=== PATIENT | female | born 1995 | race African-American/Black ===

== ENCOUNTER 2021-07-08 20:58 | Day surgery (SDC) | payer OTHER ==
[2021-07-08 21:09] VITALS: BMI 32.4
[2021-07-08] MEDS ORDERED: hydrALAZINE 20 MG/ML VIAL SLOW IVP PRN (21:48)
[2021-07-08 22:30] LABS: #Eosinphils 0.3 10x3/uL (0.0-0.5); #Monocytes 1.5 10x3/uL (0.0-1.1); #Neutrophils 10.4 10x3/uL (1.5-8.4); %Basophils 0.2 % (0.0-2.0); %Eosinophils 1.9 % (0.0-6.0); %Lymphocytes 14.1 % (18.0-47.0); %Monocytes 10.5 % (0.0-10.0); %Neutrophils 72.7 % (40.0-75.0); Mean Corpuscular HGB CONC 31.8 g/dL (32.0-36.0); Mean Corpuscular Hemoglobin 29.3 pg (27.0-33.0); Mean Platelet Volume 11.2 fl (7.4-10.4); Platelet Count 232 10x3/uL (150-450); RBC Distribution Width 13.6 % (11.5-14.5); Red Blood Cell (RBC) Count 3.76 10x6/uL (3.90-5.03); White Blood Cell (WBC) Count 14.3 10x3/uL (3.5-10.5)
[2021-07-08 22:44] LABS: ALT (SGPT) 9 U/L (8-55); AST (SGOT) 12 U/L (5-34); Albumin 3.2 g/dL (3.5-5.0); Alkaline Phosphatase 85 U/L (40-110); Anion Gap 12 mmol/L (10-20); BUN (Urea Nitrogen) 5 mg/dL (7.0-18.7); Bilirubin, Total 0.3 mg/dL (0.2-1.2); Calc. Creatinine Clearance 181 mL/min (70-130); Calcium 9.1 mg/dL (7.8-10.44); Carbon Dioxide 23 mmol/L (22-29); Chloride 107 mmol/L (98-107); Globulin 3.2 g/dL (2.4-3.5); Glucose 100 mg/dL (70-105); Potassium 3.9 mmol/L (3.5-5.1); Protein, Total 6.4 g/dL (6.0-8.3); Sodium 138 mmol/L (136-145)
== END 2021-07-08 23:34 | disposition home or self-care (01) ==
LOC: CSHLD/OP 20:58
PROVIDERS: ATTEND Obstetrics & Gynecology
DX: O99.891 Other specified diseases and conditions complicating pregnancy (principal); R10.9 Unspecified abdominal pain; Z3A.33 33 weeks gestation of pregnancy
CPT/HCPCS: 36415; 80053; 85025; 99283

== ENCOUNTER 2021-07-15 18:38 | Day surgery (SDC) | payer OTHER ==
[2021-07-15 19:16] VITALS: BMI 32.4
[2021-07-15] MEDS ORDERED: hydrALAZINE 20 MG/ML VIAL SLOW IVP PRN (20:38)
== END 2021-07-15 20:49 | disposition home or self-care (01) ==
LOC: CSHLD/OP 18:38
PROVIDERS: ATTEND Obstetrics & Gynecology
DX: Z04.3 Encounter for examination and observation following other accident (principal); Z3A.34 34 weeks gestation of pregnancy; W10.1XXA Fall (on)(from) sidewalk curb, initial encounter
CPT/HCPCS: 99282

== ENCOUNTER 2021-07-25 05:19 | Day surgery (SDC) | payer OTHER ==
[2021-07-25 05:57] VITALS: BMI 32.9
[2021-07-25] MEDS ORDERED: hydrALAZINE 20 MG/ML VIAL SLOW IVP PRN (06:08)
[2021-07-25] MEDS ORDERED: Ondansetron PF 4 MG/2 ML Vial IVP SCH (08:00)
[2021-07-25] MEDS: Lactated Ringer's 1,000 ML IV SCH ×2 (08:14→08:54)
[2021-07-25 08:38] LABS: Hemoglobin 12.1 g/dL (12.0-15.5); Mean Corpuscular HGB CONC 32.7 g/dL (32.0-36.0); Mean Corpuscular Hemoglobin 29.5 pg (27.0-33.0); Mean Corpuscular Volume 90.2 fl (81.6-98.3); Mean Platelet Volume 11.4 fl (7.4-10.4); Platelet Count 240 10x3/uL (150-450); RBC Distribution Width 13.8 % (11.5-14.5); White Blood Cell (WBC) Count 17.4 10x3/uL (3.5-10.5)
[2021-07-25 09:06] LABS: Syphilis Antibody Nonreactive (Nonreactive); Syphilis Antibody Index 0.03 S/CO (<1.00 Non-Reactive)
[2021-07-25 09:08] LABS: HIV (1/2) Antibody/Antigen Non-Reactive (NonReactive); HIV 1/2 INDEX 0.16 S/CO (<1.00); Hep B Surf Ag Non-Reactive S/CO (NonReactive)
[2021-07-25 10:00] LABS: Bilirubin Neg (Negative); Blood, Urine Negative (Negative); Clarity Clear (Clear); Glucose, Urine (Dipstick) Normal (Negative); Ketone, Urine 50 mg/dL (Negative); Leukocyte Negative (Negative); Nitrite Negative (Negative); Protein, Urine (Dipstick) 30 mg/dl (Neg-Trace); Specific Gravity, Urine 1.015 (1.002-1.036); Urobilinogen Normal mg/dL (Less than 2)
[2021-07-25 10:02] LABS: Urine Culture Reflex No No
[2021-07-25 10:10] LABS: Amphetamine Not Detected (NotDetected); Barbiturates Screen Not Detected (NotDetected); Benzodiazepine Screen Not Detected (NotDetected); Cocaine Metabolite Screen Not Detected (NotDetected); Methadone Not Detected (NotDetected); Methamphetamine Not Detected (NotDetected); Opiate Screen Not Detected (NotDetected); Oxycodone Screen Not Detected (NotDetected); Phencyclidine (PCP) Not Detected (NotDetected); THC/Cannabinoid Screen Not Detected (NotDetected); Tricyclic Screen Not Detected (NotDetected)
[2021-07-25 10:19] LABS: Bacteria/HPF None Seen HPF (None Seen); RBC/HPF 0-3 HPF (0-3); Squamous Epithelial 0-3 HPF (0-3); WBC/HPF 0-3 HPF (0-3)
[2021-07-27 04:58] LABS: Chlamydia by PCR Not Detected (NotDetected); GC by PCR Not Detected (NotDetected)
== END 2021-07-25 14:50 | disposition home or self-care (01) ==
LOC: CSHLD/OP 05:19
PROVIDERS: ATTEND Obstetrics & Gynecology
DX: O47.03 False labor before 37 completed weeks of gestation, third trimester (principal); O21.2 Late vomiting of pregnancy; O99.891 Other specified diseases and conditions complicating pregnancy; R19.7 Diarrhea, unspecified; Z3A.36 36 weeks gestation of pregnancy
CPT/HCPCS: 51701; 76805; 80306; 81001; 85027; 86762; 86780; 86850; 86900; 86901; 87081; 87340; 87389; 87480; 87491; 87510; 87591; 87660; 96360; 96361; 96375; 99285; J2405

== ENCOUNTER 2021-08-03 20:41 | Day surgery (SDC) | payer OTHER ==
[2021-08-03 21:00] VITALS: BMI 33.4
[2021-08-03] MEDS ORDERED: hydrALAZINE 20 MG/ML VIAL SLOW IVP PRN (21:17)
[2021-08-03] MEDS ORDERED: Promethazine HCl 12.5 MG in Sodium Chloride 0.9% 50 ML IVPB PRN (21:30)
[2021-08-03] MEDS ORDERED: Lactated Ringer's 1,000 ML IV SCH (21:30)
== END 2021-08-03 22:50 | disposition home or self-care (01) ==
LOC: CSHLD/OP 20:41
PROVIDERS: ATTEND Obstetrics & Gynecology
DX: O47.1 False labor at or after 37 completed weeks of gestation (principal); Z3A.37 37 weeks gestation of pregnancy
CPT/HCPCS: 96361; 96365; 99283; J2550

== ENCOUNTER 2021-08-04 02:42 | Inpatient (IN) | payer MEDICAID, OTHER ==
[2021-08-04] MEDS ORDERED: NS w/ Oxytocin 30 units 500 ML ONE (02:49)
[2021-08-04] MEDS ORDERED: Zolpidem Tartrate 5 MG TAB PO PRN (03:17)
[2021-08-04] MEDS ORDERED: Methylergonovine 0.2 MG/ML VIAL IM PRN (03:17)
[2021-08-04] MEDS ORDERED: Boostrix 0.5 ML (Tdap) VIAL IM ONE (03:17)
[2021-08-04] MEDS ORDERED: Benzocaine-Menthol 82.5 ML CAN TOP PRN (03:17)
[2021-08-04] MEDS ORDERED: Acetaminophen 500 MG TAB PO PRN (03:17)
[2021-08-04] MEDS ORDERED: Milk Of Magnesia 30 ML UDCUP PO PRN (03:17)
[2021-08-04] MEDS ORDERED: hydrALAZINE 20 MG/ML VIAL SLOW IVP PRN ×2 (03:17)
[2021-08-04] MEDS ORDERED: Bisacodyl 10 MG SUPP PR PRN (03:17)
[2021-08-04] MEDS ORDERED: Misoprostol 200 MCG TAB VAG PRN (03:17)
[2021-08-04] MEDS ORDERED: Ondansetron PF 4 MG/2 ML Vial IVP PRN (03:17)
[2021-08-04] MEDS ORDERED: Promethazine HCl 25 MG/ML VIAL IM PRN (03:17)
[2021-08-04] MEDS ORDERED: NS w/ Oxytocin 30 units 500 ML IV SCH (03:30)
[2021-08-04 04:15] LABS: Hemoglobin 10.6 g/dL (12.0-15.5); Mean Corpuscular HGB CONC 31.3 g/dL (32.0-36.0); Mean Corpuscular Hemoglobin 28.7 pg (27.0-33.0); Mean Corpuscular Volume 91.9 fl (81.6-98.3); Mean Platelet Volume 11.6 fl (7.4-10.4); Platelet Count 232 10x3/uL (150-450); Red Blood Cell (RBC) Count 3.69 10x6/uL (3.90-5.03); White Blood Cell (WBC) Count 20.6 10x3/uL (3.5-10.5)
[2021-08-04 04:31] VITALS: BMI 33.9
[2021-08-04 04:45] LABS: Syphilis Antibody Nonreactive (Nonreactive); Syphilis Antibody Index 0.02 S/CO (<1.00 Non-Reactive)
[2021-08-04 04:46] LABS: Hep B Surf Ag Non-Reactive S/CO (NonReactive)
[2021-08-04 04:47] LABS: HBSAg Index 0.21 S/CO (0-0.99)
[2021-08-04 05:11] LABS: SARS-CoV-2 NAA Rapid Test Not Detected (NotDetected)
[2021-08-04] MEDS: Ferrous Sulfate 325 MG TAB PO SCH ×2 (07:35→17:18)
[2021-08-04] MEDS: Docusate Calcium (SURFAK) 240 MG CAP PO SCH ×2 (08:34→21:26)
[2021-08-04] MEDS: Ibuprofen 800 MG TAB PO SCH ×3 (08:34→23:41)
[2021-08-04 13:04] LABS: HBSAB Concentration Less than 8.00 mIU/mL; Hep B Surf AB Non-Reactive (NonReactive)
[2021-08-05] MEDS: Lactated Ringer's 1,000 ML IV SCH ×3 (07:09→12:33)
[2021-08-05] MEDS: Ferrous Sulfate 325 MG TAB PO SCH ×2 (08:39→16:54)
[2021-08-05] MEDS: Docusate Calcium (SURFAK) 240 MG CAP PO SCH ×2 (08:41→21:23)
[2021-08-05] MEDS: Ibuprofen 800 MG TAB PO SCH ×3 (08:41→23:01)
[2021-08-06 07:56] VITALS: BP 92/51; TEMP 98.9
[2021-08-06] MEDS: Docusate Calcium (SURFAK) 240 MG CAP PO SCH (08:25)
[2021-08-06] MEDS: Lactated Ringer's 1,000 ML IV SCH ×2 (08:25→14:58)
[2021-08-06] MEDS: Ibuprofen 800 MG TAB PO SCH ×3 (08:25→15:05)
[2021-08-06] MEDS: Ferrous Sulfate 325 MG TAB PO SCH ×2 (08:27→18:33)
== END 2021-08-06 18:30 | disposition home or self-care (01) | DRG 776 ==
LOC: CSHLD 02:42 → CSHPP 05:16
PROVIDERS: ADMIT Obstetrics & Gynecology; ATTEND Obstetrics & Gynecology
PROC: 10E0XZZ Delivery of Products of Conception, External Approach (ICD-10-PCS; principal; 2021-08-05)
DX: Z39.0 Encounter for care and examination of mother immediately after delivery (principal)
CPT/HCPCS: 85027; 86706; 86780; 86850; 86900; 86901; 87340; 88307; 96361; 96365; 99283; 99285; J2550; J2590; U0002